=== PATIENT | female | born 1965 | race Caucasian/White ===

== ENCOUNTER 2021-05-26 13:02 | Inpatient (IN) | payer BC ==
[~2021-05-26] VITALS: Ht 172.7 cm; Wt 104.0 kg
--- NOTE | 2021-05-26 13:18 | NUR ---
PT PLACED ON BP CUFF, PULSE OX. CALL LIGHT WITHIN REACH. PT AMBULATORY TO BR ,URINE COLLECTED/ORDERED/SENT.
[2021-05-26] MEDS ORDERED: SODIUM CHLORIDE FLUSH 10ML SYR IVF ONE (13:30)
[2021-05-26] MEDS ORDERED: ONDANSETRON 2MG/ML, 2ML IVPush ONE (13:30)
[2021-05-26] MEDS ORDERED: ACETAMINOPHEN 500 MG TABLET PO ONE (13:30)
[2021-05-26] MEDS ORDERED: SODIUM CHLORIDE 0.9% 1,000ML IVBOLUS ONE (13:30)
[2021-05-26] MEDS ORDERED: ONDANSETRON 2MG/ML, 2ML ONE (13:43)
[2021-05-26] MEDS ORDERED: ACETAMINOPHEN 500 MG TABLET ONE (13:44)
--- NOTE | 2021-05-26 13:52 | NUR ---
PT BACK FROM XRAY. PT MEDICATED, IVF BOLUS GIVEN PER ERP ORDER. CALL LIGHT WITHIN REACH.
[2021-05-26 14:02] LABS: MICROSCOPIC NOT IND
[2021-05-26 14:38] LABS: BASOPHILS % (AUTO) 0 % (0-1); EOSINOPHILS % (AUTO) 0 % (1-7); LYMPHOCYTES % (AUTO) 9 % (22-44); MEAN CORPUSCULAR HEMOGLOBIN 29.2 pg (27.0-34.8); MEAN CORPUSCULAR HGB CONC 32.9 g/dL (32.4-35.8); MEAN PLATELET VOLUME 9.2 fL (7.4-10.4); MONOCYTES % (AUTO) 6 % (2-9); NEUTROPHILS % (AUTO) 84 % (42-75); PLATELET COUNT 221 x10^3/uL (130-400); RED BLOOD COUNT 4.72 x10^6/uL (3.82-5.3); RED CELL DISTRIBUTION WIDTH 14.3 % (9.6-15.2)
[2021-05-26 14:48] LABS: ALBUMIN 3.1 g/dL (3.4-5.0); ANION GAP 9 mmol/L (5-15); CALCIUM 8.5 mg/dL (8.5-10.1); CHLORIDE 103 mmol/L (98-107)
--- NOTE | 2021-05-26 14:51 | NUR ---
RECEIVED REPORT FROM SARAI NICE. ASSUMING CARE AT THIS TIME. AWAITING LAB RESULTS.
[2021-05-26 14:53] LABS: ALANINE AMINOTRANSFERASE 21 U/L (12-78); ALKALINE PHOSPHATASE 138 U/L (45-117); BILIRUBIN,TOTAL 1.3 mg/dL (0.2-1.0); CREATININE 0.54 mg/dL (0.55-1.02); TOTAL PROTEIN 7.7 g/dL (6.4-8.2)
--- NOTE | 2021-05-26 15:02 | NUR ---
PT STATES "MY TUMMY SETTLED DOWN A BIT". PT RESTING COMFORTABLY ON GURNEY. RESP EVEN AND UNLABORED. CALL LIGHT IN REACH.
--- NOTE | 2021-05-26 15:18 | NUR ---
US AT BEDSIDE. ERMD AT BEDSIDE TO UPDATE PT ON POC.
--- NOTE | 2021-05-26 15:58 | NUR ---
ALL RESULTS ARE BACK AT THIS TIME. CHART UP FOR RECHECK.
[2021-05-26] MEDS ORDERED: ENALAPRILAT 1.25 MG/ML, 2ML IVPush PRN (16:30)
[2021-05-26] MEDS ORDERED: SODIUM CHLORIDE FLUSH 10ML SYR IVF PRN (16:30)
[2021-05-26] MEDS ORDERED: ONDANSETRON 2MG/ML, 2ML IVPush PRN (16:30)
[2021-05-26] MEDS ORDERED: SODIUM CHLORIDE 0.9% 1,000 ML IV ONE (16:30)
--- NOTE | 2021-05-26 16:55 | NUR ---
REPORT GIVEN TO TYLER RN. PT RTG TO ROOM [id number]
[2021-05-26] MEDS ORDERED: KETOROLAC 15 MG/1ML IM PRN (18:00)
[2021-05-26] MEDS: ACETAMINOPHEN 325 MG TABLET PO PRN ×2 (18:04→23:12)
[2021-05-26] MEDS: LACTATED RINGERS 1,000 ML IV SCH (18:08)
[2021-05-26 18:10] VITALS: BP 117/77
[2021-05-26 20:14] VITALS: BP 125/81
[2021-05-26] MEDS: POLYETHYLENE GLYCOL 17 GM PACKET PO PRN (23:14)
[2021-05-27] MEDS: LACTATED RINGERS 1,000 ML IV SCH ×3 (01:32→17:46)
[2021-05-27 01:33] VITALS: BP 146/80
[2021-05-27] MEDS: ACETAMINOPHEN 325 MG TABLET PO PRN (04:15)
[2021-05-27 06:11] LABS: BASOPHILS % (AUTO) 0 % (0-1); EOSINOPHILS % (AUTO) 0 % (1-7); LYMPHOCYTES % (AUTO) 9 % (22-44); MEAN CORPUSCULAR HEMOGLOBIN 29.8 pg (27.0-34.8); MEAN CORPUSCULAR HGB CONC 33.8 g/dL (32.4-35.8); MEAN PLATELET VOLUME 9.9 fL (7.4-10.4); MONOCYTES % (AUTO) 6 % (2-9); NEUTROPHILS % (AUTO) 85 % (42-75); PLATELET COUNT 232 x10^3/uL (130-400); RED BLOOD COUNT 4.75 x10^6/uL (3.82-5.3); RED CELL DISTRIBUTION WIDTH 14.4 % (9.6-15.2)
[2021-05-27 06:21] LABS: CHLORIDE 102 mmol/L (98-107)
[2021-05-27 06:30] LABS: ALANINE AMINOTRANSFERASE 19 U/L (12-78); ALBUMIN 3.2 g/dL (3.4-5.0); ALKALINE PHOSPHATASE 142 U/L (45-117); ANION GAP 11 mmol/L (5-15); BILIRUBIN,TOTAL 1.4 mg/dL (0.2-1.0); CALCIUM 8.9 mg/dL (8.5-10.1); CREATININE 0.45 mg/dL (0.55-1.02)
[2021-05-27 07:10] VITALS: BP 153/83
[2021-05-27] MEDS ORDERED: KETOROLAC 30 MG/1 ML IM PRN (09:14)
[2021-05-27] MEDS ORDERED: BISACODYL 10 MG SUPP PR SCH (09:30)
[2021-05-27 12:26] VITALS: BP 110/69
[2021-05-27] MEDS: POLYETHYLENE GLYCOL 17 GM PACKET PO PRN (15:35)
[2021-05-27] MEDS: KETOROLAC 30 MG/1 ML IVPush PRN ×2 (15:35→23:19)
[2021-05-27 19:19] VITALS: BP 123/66
[2021-05-28 00:08] VITALS: BP 119/75
[2021-05-28] MEDS: LACTATED RINGERS 1,000 ML IV SCH (01:20)
[2021-05-28] MEDS: KETOROLAC 30 MG/1 ML IVPush PRN (05:08)
[2021-05-28 08:00] VITALS: BP 91/50
[2021-05-28] MEDS ORDERED: MAGNESIUM HYDROXIDE 8%, 30ML UDC PO SCH (11:30)
[2021-05-28] MEDS ORDERED: SERT50TA28 PO (13:03)
[2021-05-28 14:40] VITALS: BP 91/50
== END 2021-05-28 15:49 | disposition home or self-care (01) | DRG 440 ==
LOC: ED 13:32 → 4NW 16:12
PROVIDERS: ADMIT Internal Medicine; ATTEND Hospitalist
DX: K85.00 Idiopathic acute pancreatitis without necrosis or infection (principal); E66.9 Obesity, unspecified; F32.9 Major depressive disorder, single episode, unspecified; F15.90 Other stimulant use, unspecified, uncomplicated; F19.90 Other psychoactive substance use, unspecified, uncomplicated; Z68.34 Body mass index [BMI] 34.0-34.9, adult; Z88.5 Allergy status to narcotic agent
CPT/HCPCS: 36415; 74021; 76700; 80053; 81003; 83690; 83735; 84100; 85025; 96361; 96374; 99285; G0378; J1885; J2405; J7030; J7120